=== PATIENT | female | born 1985 | race Caucasian/White ===

== ENCOUNTER → 2018-05-24 | Outpatient (CLI) | payer BC ==
[~2018-05-24] MED LIST: CODACE30 PO; DIPATR PO; HYDACE5 PO; NAPR500 PO; OXYACE5T PO; PHENTERAMINE; PROM25 PO; RXCODACET PO; TRAM50 PO; YAZ
[2018-05-26 15:07] LABS: HPV 16 Negative (Negative); HPV 18 Negative (Negative); HPV OTHER HR TYPES Negative (Negative)
== END | disposition home or self-care (01) ==
LOC: LAB SHORT 15:15 → LAB 15:15
PROVIDERS: Obstetrics & Gynecology
DX: Z01.419 Encounter for gynecological examination (general) (routine) without abnormal findings (principal)
CPT/HCPCS: 87624; G0123

== ENCOUNTER 2021-11-17 09:59 | Day surgery (SDC) | payer OTHER, BC ==
[~2021-11-17] VITALS: Ht 162.6 cm; Wt 102.0 kg
--- NOTE | 2021-11-17 10:49 | NUR ---
11/17/21 1049 Demetri Uriarte CALL LIGHT WITHIN REACH. FAMILY AT BEDSIDE
== END 2021-11-17 13:58 | disposition home or self-care (01) ==
LOC: ORSCSDS 09:59
PROVIDERS: Orthopaedic Surgery
PROC: 0MQN4ZZ Repair Right Knee Bursa and Ligament, Percutaneous Endoscopic Approach (ICD-10-PCS; principal; 2021-11-17 11:15)
PROC: 0SBC4ZZ Excision of Right Knee Joint, Percutaneous Endoscopic Approach (ICD-10-PCS; principal; 2021-11-17 11:15)
DX: S83.511A Sprain of anterior cruciate ligament of right knee, initial encounter (principal); S83.241A Other tear of medial meniscus, current injury, right knee, initial encounter; S83.281A Other tear of lateral meniscus, current injury, right knee, initial encounter; E66.9 Obesity, unspecified; Z68.38 Body mass index [BMI] 38.0-38.9, adult; Z79.899 Other long term (current) drug therapy
CPT/HCPCS: A9270; C1713; J0171; J0690; J1100; J1885; J2250; J2405; J2704; J2765; J2795; J3010; J7120